=== PATIENT | female | born 1970 | race Caucasian/White ===

== ENCOUNTER 2017-11-18 11:14 | Observation (INO) | payer BC ==
[2017-11-16 14:44] LABS: BASOPHILS # (AUTO) 0.1 (0.0-0.1); BASOPHILS % 0.5 % (0.0-1.0); EOSINOPHILS # (AUTO) 0.1 (0.0-0.4); EOSINOPHILS % 0.7 % (0.0-6.0); HEMATOCRIT 42.7 % (34.2-44.1); HEMOGLOBIN 14.2 g/dL (12.0-16.0); MEAN CORPUSCULAR HEMOGLOBIN 30.7 pg (28-32); MEAN CORPUSCULAR HGB CONC 33.3 g/dL (31-35); MEAN CORPUSCULAR VOLUME 92.4 fL (81-99); MONOCYTES # (AUTO) 0.7 (0.2-0.8); MONOCYTES % 7.2 % (4.4-11.3); NEUTROPHILS # (AUTO) 5.8 (2.1-6.9); NEUTROPHILS % 60.4 % (38.7-80.0); PLATELET COUNT 340 x10e3/uL (140-360); RED BLOOD COUNT 4.62 x10e6/uL (3.6-5.1); RED CELL DISTRIBUTION WIDTH 12.3 % (11.7-14.4)
[2017-11-16 14:48] LABS: BILIRUBIN,URINE NEGATIVE (NEGATIVE); CLARITY,URINE CLEAR (CLEAR); COLOR,URINE YELLOW (YELLOW); KETONES,URINE NEGATIVE (NEGATIVE); LEUKOCYTE ESTERASE ,URINE NEGATIVE (NEGATIVE); NITRITE,URINE NEGATIVE (NEGATIVE); PROTEIN,URINE DIPSTICK NEGATIVE (NEGATIVE); URINE UROBILINOGEN 0.2 mg/dL (0.2 - 1)
[2017-11-16 15:04] LABS: ALANINE AMINOTRANSFERASE 10 IU/L (0-55); ALBUMIN 4.4 g/dL (3.5-5.0); ALBUMIN/GLOBULIN RATIO 1.1 (0.8-2.0); ALKALINE PHOSPHATASE 59 IU/L (40-150); ANION GAP 14.7 mmol/L (8-16); BLOOD UREA NITROGEN 11 mg/dL (7-26); BUN/CREATININE RATIO 14 (6-25); CARBON DIOXIDE 24 mmol/L (22-29); CHLORIDE 104 mmol/L (98-107); EST GLOMERULAR FILTRATION RATE > 60 ML/MIN (60-); GLUCOSE 88 mg/dL (74-118); POTASSIUM 4.7 mmol/L (3.5-5.1); SODIUM 138 mmol/L (136-145)
[2017-11-17] MEDS: CEFAZOLIN SOD 1 GM VIAL IV SCH (21:55)
[~2017-11-18] VITALS: Ht 154.9 cm; Wt 67.6 kg
[~2017-11-18 11:14] MED LIST: LISINOPRIL10 MG PO; MELATONIN10 M1 PO; PRAVASTATIN SOD80 MG PO; PROVERA PO; VITAMIN B-121000 MC1 PO; ZOLOFT100 MG PO
[2017-11-18] MEDS ORDERED: ECHINACEA (11:59)
[2017-11-18] MEDS ORDERED: CEFAZOLIN SOD 2 GM/D5W 50ML 50 ML IV ONE (12:27)
[2017-11-18] MEDS ORDERED: ESTROGENS CONJUGATED VAGINAL CR 45 GM TUBE PV ONE (12:50)
[2017-11-18] MEDS ORDERED: VASOPRESSIN INJ 20 UNIT/ML VIAL ONE (12:50)
[2017-11-18] MEDS ORDERED: BUPIVACAINE 0.25%/EPI 30ML SDV INJ ONE (12:50)
[2017-11-18] MEDS ORDERED: EPHEDRINE SULFATE INJ 50 MG/10 ML SYR ONE (14:57)
[2017-11-18] MEDS ORDERED: SEVOFLURANE INHAL SOLN 250 ML PEN BTL ONE (14:57)
[2017-11-18] MEDS ORDERED: ACETAMINOPHEN 1000 MG/100 ML IV ONE (14:57)
[2017-11-18] MEDS ORDERED: ONDANSETRON HCL INJ 2 MG/ML VIAL ONE ×2 (14:57→16:29)
[2017-11-18] MEDS ORDERED: DEXAMETHASONE SOD PHOS INJ 4 MG/ML VIAL ONE (14:57)
[2017-11-18] MEDS ORDERED: PROPOFOL IV EMULSION 10 MG/ML 20 ML VIAL ONE (14:57)
[2017-11-18] MEDS ORDERED: LIDOCAINE HCL 2% LOCAL INJ 5 ML SDV VIAL INJ ONE (14:57)
[2017-11-18] MEDS ORDERED: GLYCOPYRROLATE INJ 1MG/ 5 ML SYR ONE (14:57)
[2017-11-18] MEDS ORDERED: PHENYLEPHRINE HCL 1% 10 MG/ML VIAL ONE (14:57)
[2017-11-18] MEDS ORDERED: NEOSTIGMINE 5 MG/5ML SYR ONE (14:57)
[2017-11-18] MEDS ORDERED: ROCURONIUM BROMIDE 10 MG/ML 5ML VIAL ONE (14:57)
[2017-11-18] MEDS ORDERED: HYDROMORPHONE 1MG/1ML INJ ONE (15:21)
[2017-11-18] MEDS: LACTATED RINGER'S 1,000 ML IV SCH ×2 (16:25→23:05)
[2017-11-18] MEDS ORDERED: METOCLOPRAMIDE HCL 10 MG/2ML VIAL ONE (16:29)
[2017-11-18] MEDS ORDERED: MORPHINE SULFATE 2 MG/ML SYR IM PRN (16:30)
[2017-11-18] MEDS ORDERED: DOCUSATE SODIUM 100 MG CAP PO PRN (16:30)
[2017-11-18] MEDS ORDERED: ONDANSETRON HCL INJ 2 MG/ML VIAL IV PRN (16:30)
[2017-11-18] MEDS ORDERED: SIMETHICONE 80 MG CHEW PO PRN (16:30)
[2017-11-18] MEDS ORDERED: DIPHENHYDRAMINE HCL 25 MG CAP PO PRN (16:30)
[2017-11-18] MEDS ORDERED: BISACODYL 10 MG SUPP PR PRN (16:30)
[2017-11-18] MEDS ORDERED: ACETAMINOPHEN 325 MG TAB PO PRN (16:30)
[2017-11-18] MEDS ORDERED: MORPHINE SULFATE 5 MG/ML VIAL IM PRN ×2 (16:45)
--- NOTE | 2017-11-18 17:54 | Operative Report ---
DATE OF PROCEDURE: November 18, 2017 PREOPERATIVE DIAGNOSES 1. Abnormal uterine bleeding. 2. Fibroid uterus. 3. Premenstrual dysphoric disorder. POSTOPERATIVE DIAGNOSES 1. Abnormal uterine bleeding. 2. Fibroid uterus. 3. Premenstrual dysphoric disorder. TITLE OF PROCEDURE 1. Laparoscopically assisted vaginal hysterectomy. 2. Bilateral salpingo-oophorectomy. ENVIRONMENTAL MONITORING SPECIALIST: Dr. Tu Odonnell ANESTHESIA: General with Dr. Rubio and Ian, tiler's assistant. INDICATION FOR OPERATION: The patient is a 47-year-old 0, with last menstrual period October 28, 2017, with abnormal uterine bleeding and fibroid uterus unrelieved by medical therapy. She also requests bilateral salpingo-oophorectomy for severe premenstrual dysphoric disorder. I explained to her that it may not cure her symptoms but, understanding this, she still would like to try it. I offered her alternatives, and she chooses laparoscopically-assisted vaginal hysterectomy and bilateral salpingo-oophorectomy. She is, therefore, taken to the operating room at this time. FINDINGS AT SURGERY: The uterus was slightly enlarged with a 2 to 3 cm fundal myoma and a 2 cm left ovarian cyst. There were also some adhesions of the left adnexa to the left lateral sidewall which Dr. Odonnell lysed for me. PROCEDURE: The patient was taken to the operating room and placed on the table in the supine position. General anesthesia was administered. The patient was placed in the lithotomy position. The perineum was prepared and draped in the usual sterile manner as was the abdomen. Pelvic exam revealed a 6-week size, nodular, anteverted uterus with a 2-cm left ovarian cyst. A Cheng catheter had been placed in the bladder for constant drainage. Then a weighted speculum was placed in the posterior vaginal wall. With the aid of a right-angle retractor, the anterior lip of the cervix was grasped with a single-tooth tenaculum. Then the Melinda cannula was inserted into the endocervical canal for manipulation. We proceeded to laparoscopy. The air hammer operator changed gloves. The legs were brought down from lithotomy. A small incision was made just inferior to the umbilicus in the midline. The Veress needle was inserted through the incision into the peritoneal cavity. A pneumoperitoneum was created by insufflation of 4 L of carbon dioxide gas under a filling pressure of 8-10 mmHg. The Veress needle was removed. A trocar was inserted through the incision into the peritoneal cavity. The laparoscope was placed with confirmation that the peritoneal cavity had been entered. A 2nd trocar was placed through a midline left lower quadrant incision under direct visualization by laparoscopy. A 3rd trocar was placed in the right lower quadrant under direct visualization by laparoscopy. The probes were placed. The contents of the abdomen and pelvis were visualized with the finding of an enlarged uterus with a fundal myoma and a 2-cm left ovarian cyst. The right tube and ovary were within normal limits. The left tube was within normal limits. The left adnexa was slightly adherent to the pelvic sidewall. Dr. Odonnell was called to lyse these adhesions. At this point, once the left adnexa was free, we proceeded with the hysterectomy and bilateral salpingo-oophorectomy. Attention was turned to the right adnexa. The right infundibulopelvic ligament was grasped with the LigaSure instrument. Then the LigaSure instrument was fired. Once good hemostasis was in evidence, we proceeded to cut, and the left adnexa was free of the pelvic sidewall. Then the mesosalpinx was clamped with the LigaSure and fired and cut. Then the right round ligament was clamped, fired and cut with the LigaSure instrument. Then the uterus was skeletonized on the right side, clamping with the LigaSure, firing and cutting down to the level of the uterine vessels. At this point, attention was turned to the left tube, where Dr. Odonnell had freed up the left adnexa. Then the left infundibulopelvic ligament was clamped with a LigaSure instrument. The LigaSure was fired until there was good hemostasis. Then the left infundibulopelvic ligament was cut, and there was good hemostasis in evidence. Then we proceeded to grab the left mesosalpinx, which was clamped. The LigaSure was fired and then cut. Then the round ligament on the left side was also clamped and cut after firing. Then the left side of the uterus was skeletonized using the LigaSure instrument, clamping, firing and cutting. Then we proceeded to open anteriorly using the LigaSure instrument on the anterior peritoneum, clamping, firing and cutting until the uterus was free. Then the bladder was brought down gently with instruments. We then went after the uterine vessels, clamping with a LigaSure as close to the uterus as possible, firing the instrument and then cutting, with good hemostasis noted. At this point, the uterus was completely freed down to the cervix. Then we proceeded with the vaginal portion of the procedure. At this point, the legs were put back up in lithotomy. The cervix was circumscribed with a knife after dilute Pitressin had been injected into the cervix. The endopelvic fascia was advanced anteriorly, posteriorly and laterally. Anteriorly, the peritoneum was dissected away from the uterus, and we were able to get in anteriorly and place a right-angle in for retraction. Then we dissected posteriorly, and we were able to get in posteriorly. Then clamping the uterosacral ligaments on each side with Zeppelin clamps, cutting and tying off with #0 Vicryl suture and tagging for lateral identification. At this point, we then were able to clamp where the uterine vessels had been, cut and tie off using #0 Vicryl suture, clamping from anterior to posterior peritoneum. After 2 bites, the uterus was freed because of the laparoscopic portion of the procedure. Then at this point the uterus was easily brought out. Any attachments were tied off after being cut. Then we proceeded to remove the uterus, tubes and ovaries as 1 unit. We sent it to pathology for definitive diagnosis. At this point, the area was inspected, and we proceeded to close. The uterosacral ligaments were tied to the vaginal cuff with a free needle. Then the vaginal cuff was closed with a running locked stitch of #1 chromic suture. Following this, we irrigated and suctioned the vagina. We then changed gown and gloves and rescrubbed. Then we looked inside. There was 1 small bleeder noted. Once the peritoneum was reinsufflated, the LigaSure instrument was placed over this, clamping and firing. There was good hemostasis after that. We irrigated and suctioned and found no further evidence of bleeding, thus completing the procedure. There were no complications noted. Estimated blood loss was 150 mL. At this point, all the air and instruments were removed from the abdomen. The skin incisions were closed with inverted stitches of 4-0 Monocryl suture, thus completing the procedure. The patient tolerated the procedure well. The counts were correct times 3. The patient was transferred from the operating room to the recovery room in stable condition. Job#: [id number]
[2017-11-18 18:08] VITALS: BP 111/55
[2017-11-18] MEDS ORDERED: FENTANYL CITRATE/PF 100MCG/2 ML INJ ONE (18:19)
[2017-11-18] MEDS ORDERED: MIDAZOLAM HCL 2 MG/2 ML VIAL ONE (18:19)
[2017-11-18 19:00] VITALS: BP 113/56
[2017-11-18] MEDS ORDERED: NON-FORMULARY MEDICATION (Melatonin 10 MG) PO SCH (21:00)
[2017-11-18] MEDS ORDERED: MELATONIN 5 MG TABLET PO SCH (21:00)
[2017-11-18] MEDS: KETOROLAC TROMETHAMINE 30 MG/ML VIAL IV PRN (21:55)
[2017-11-18] MEDS: CEFAZOLIN SOD 1 GM VIAL IV SCH (21:55)
[2017-11-18] MEDS: PROMETHAZINE 12.5MG/ NACL 0.9% 12.5 MG/50 ML BAG IV PRN (22:00)
[2017-11-18] MEDS ORDERED: CEFAZOLIN SOD 1 GM/NS 50ML 50 ML IV SCH (22:00)
[2017-11-18 22:44] VITALS: BP 113/56
[2017-11-18 23:25] VITALS: BP 125/58
[2017-11-19 04:00] VITALS: BP 116/58
[2017-11-19] MEDS: CEFAZOLIN SOD 1 GM VIAL IV SCH ×2 (05:15→12:50)
[2017-11-19 06:51] LABS: BASOPHILS % 0.2 % (0.0-1.0); EOSINOPHILS % 0.2 % (0.0-6.0); HEMATOCRIT 32.3 % (34.2-44.1); HEMOGLOBIN 11.1 g/dL (12.0-16.0); LYMPHOCYTES # (AUTO) 2.6 (1.0-3.2); LYMPHOCYTES % 19.2 % (18.0-39.1); MEAN CORPUSCULAR HEMOGLOBIN 31.7 pg (28-32); MEAN CORPUSCULAR HGB CONC 34.4 g/dL (31-35); MEAN CORPUSCULAR VOLUME 92.3 fL (81-99); MONOCYTES # (AUTO) 0.9 (0.2-0.8); MONOCYTES % 6.7 % (4.4-11.3); NEUTROPHILS # (AUTO) 9.8 (2.1-6.9); NEUTROPHILS % 73.3 % (38.7-80.0); PLATELET COUNT 282 x10e3/uL (140-360); RED CELL DISTRIBUTION WIDTH 12.2 % (11.7-14.4)
[2017-11-19 08:56] VITALS: BP 110/54
[2017-11-19] MEDS ORDERED: CYANOCOBALAMIN 1,000 MCG TAB PO SCH (09:00)
[2017-11-19] MEDS ORDERED: LISINOPRIL 10 MG TAB PO SCH (09:00)
[2017-11-19] MEDS ORDERED: SERTRALINE HCL 100 MG TAB PO SCH (09:00)
[2017-11-19] MEDS: KETOROLAC TROMETHAMINE 30 MG/ML VIAL IV PRN (09:34)
[2017-11-19] MEDS: PROMETHAZINE 12.5MG/ NACL 0.9% 12.5 MG/50 ML BAG IV PRN (09:34)
[2017-11-19 10:22] VITALS: BP 110/54
[2017-11-19] MEDS: LACTATED RINGER'S 1,000 ML IV SCH ×2 (12:20→13:09)
[2017-11-19 13:13] VITALS: BP 123/62
[2017-11-19 15:38] VITALS: BP 111/63
[2017-11-19] MEDS ORDERED: MOTRIN200 MG PO (15:40)
[2017-11-19] MEDS ORDERED: TYLENOL WITH C1 EACH PO (15:42)
== END 2017-11-19 16:49 | disposition home or self-care (01) ==
LOC: OR 11:14 → MED/SURG 17:35 → IMCU 11-19 08:29
PROVIDERS: ADMIT Obstetrics & Gynecology; ATTEND Obstetrics & Gynecology
DX: D25.9 Leiomyoma of uterus, unspecified (principal); N83.12 Corpus luteum cyst of left ovary; N83.11 Corpus luteum cyst of right ovary; N83.8 Other noninflammatory disorders of ovary, fallopian tube and broad ligament; N94.3 Premenstrual tension syndrome; N73.6 Female pelvic peritoneal adhesions (postinfective); G47.419 Narcolepsy without cataplexy; I10 Essential (primary) hypertension; F32.9 Major depressive disorder, single episode, unspecified; F41.9 Anxiety disorder, unspecified; Z01.810 Encounter for preprocedural cardiovascular examination; Z01.812 Encounter for preprocedural laboratory examination; Z87.891 Personal history of nicotine dependence
CPT/HCPCS: 36415 ×2; 58552; 80053; 81003; 81025; 84702; 85025 ×2; 86850; 86900; 88307; 93005; G0378 ×2; J0690 ×2; J1100; J1170; J1885 ×2; J2001; J2250; J2370; J2405; J2550 ×2; J2765; J7120 ×2; J2270